=== PATIENT | male | born 1950 | race Hispanic/Latino ===

== ENCOUNTER 2018-11-05 11:00 | Emergency (ER) | payer MEDICARE, MEDICAID ==
--- NOTE | 2018-11-05 11:36 | CT ---
CT head noncontrast HISTORY: Double vision. FINDINGS: No comparison. There is no evidence of acute intracranial hemorrhage or infarct. Ventricles appear normal in size, shape and position. There is no mass effect or shift of midline structures. Minimal mucosal thickening within the ethmoid air cells. IMPRESSION: No acute intracranial abnormalities are demonstrated.
== END 2018-11-05 13:34 | disposition home or self-care (01) ==
LOC: ERS 11:00
DX: H53.9 Unspecified visual disturbance (principal); E87.1 Hypo-osmolality and hyponatremia; E11.9 Type 2 diabetes mellitus without complications
CPT/HCPCS: 36416; 70450; 93005

== ENCOUNTER 2022-06-06 08:34 | Outpatient (CLI) | payer MEDICARE, MEDICAID | END 2022-06-06 08:35 | LOC: TBSIIMAG 08:34 | PROVIDERS: ATTEND Urology | DX: C61 Malignant neoplasm of prostate (principal) | CPT/HCPCS: 72197; 82565 ==

== ENCOUNTER 2022-08-04 09:45 | Inpatient (IN) | payer MEDICARE, MEDICAID ==
[2022-08-04] MEDS ORDERED: Aspirin Chewable 81 MG TAB ONE (10:01)
[2022-08-04] MEDS ORDERED: Nitroglycerin 2% Ointment 1 INCH/1 GM Packet ONE (10:01)
[2022-08-04 10:50] LABS: #Eosinphils 0.1 thou/uL (0.0-0.7); #Neutrophils 8.2 thou/uL (1.40-6.50); %Basophils 0.3 % (0.0-1.0); %Eosinophils 0.8 % (0.0-10.0); %Lymphocytes 9.3 % (21.0-51.0); %Monocytes 9.7 % (0.0-10.0); ALT (SGPT) 25 U/L (8-55); AST (SGOT) 74 U/L (5-34); Albumin 4.2 g/dL (3.4-4.8); Alkaline Phosphatase 53 U/L (40-110); Anion Gap 16 mmol/L (10-20); BUN (Urea Nitrogen) 23 mg/dL (8.4-25.7); CK (CPK) 677 U/L (30-200); Calc. Creatinine Clearance 0 mL/min (70-130); Calcium 10.1 mg/dL (7.8-10.44); Carbon Dioxide 17 mmol/L (23-31); Chloride 105 mmol/L (98-107); Estimated GFR 73; Glucose 319 mg/dL (80-115); Hemoglobin 13.6 g/dL (14.0-18.0); Lipase 15 U/L (8-78); Mean Corpuscular HGB CONC 34.9 g/dL (32.0-36.0); Mean Corpuscular Hemoglobin 31.8 pg (27.0-31.0); Mean Platelet Volume 9.4 fL (7.4-10.4); Platelet Count 149 10x3/uL (130-400); Potassium 4.3 mmol/L (3.5-5.1); Protein, Total 7.2 g/dL (5.8-8.1); RBC Distribution Width 12.5 % (11.5-14.5); Red Blood Cell (RBC) Count 4.28 mill/uL (4.70-6.10); Sodium 134 mmol/L (136-145); White Blood Cell (WBC) Count 10.2 10x3/uL (4.8-10.8)
[2022-08-04 11:18] LABS: CKMB 22.3 ng/mL (0-6.6)
[2022-08-04] MEDS ORDERED: Nitroglycerin 0.4 MG TAB 1 EACH ONE (11:25)
[2022-08-04] MEDS ORDERED: Acetaminophen 325 MG TAB PO PRN (11:38)
[2022-08-04] MEDS ORDERED: Nitroglycerin 0.4 MG TAB (25 Tab Bottle) SL PRN (11:44)
[2022-08-04] MEDS ORDERED: Dextrose 5% in Water 1,000 ML IV PRN (12:00)
[2022-08-04] MEDS ORDERED: Insulin Regular 300 UNITS/3 ML VIAL SC PRN (12:00)
[2022-08-04] MEDS ORDERED: Dextrose 50% Abboject 50 ML SYRINGE SLOW IVP PRN (12:00)
[2022-08-04 13:33] LABS: Hemoglobin A1c 7.4 % (4.0-6.0)
[2022-08-04 14:03] LABS: Troponin I 22.217 ng/mL (< 0.028)
[2022-08-04 16:42] VITALS: BMI 34.5
[2022-08-04 18:03] LABS: Troponin I 26.642 ng/mL (< 0.028)
[2022-08-04 19:56] LABS: SARS-CoV-2 NAA Rapid Test Not Detected (NotDetected)
[2022-08-04] MEDS: Famotidine 20 MG TAB PO SCH (20:13)
[2022-08-04] MEDS: Atorvastatin Calcium 40 MG TAB PO SCH (20:13)
[2022-08-04] MEDS: Metoprolol Tartrate 25 MG TAB PO SCH (20:14)
[2022-08-05 04:30] LABS: #Eosinphils 0.1 thou/uL (0.0-0.7); #Lymphocytes 1.6 thou/uL (1.20-3.40); #Monocytes 0.8 thou/uL (0.11-0.59); #Neutrophils 6.1 thou/uL (1.40-6.50); %Basophils 0.1 % (0.0-1.0); %Eosinophils 0.8 % (0.0-10.0); %Lymphocytes 18.9 % (21.0-51.0); %Monocytes 9.5 % (0.0-10.0); %Neutrophils 70.7 % (42.0-75.0); Hemoglobin 11.7 g/dL (14.0-18.0); Mean Corpuscular Hemoglobin 31.2 pg (27.0-31.0); Mean Corpuscular Volume 91.8 fl (78.0-98.0); Mean Platelet Volume 9.5 fL (7.4-10.4); Platelet Count 136 10x3/uL (130-400); RBC Distribution Width 12.3 % (11.5-14.5); Red Blood Cell (RBC) Count 3.75 mill/uL (4.70-6.10); White Blood Cell (WBC) Count 8.6 10x3/uL (4.8-10.8)
[2022-08-05 04:45] LABS: Anion Gap 13 mmol/L (10-20); BUN (Urea Nitrogen) 25 mg/dL (8.4-25.7); Calc. Creatinine Clearance 88 mL/min (70-130); Calcium 9.1 mg/dL (7.8-10.44); Carbon Dioxide 19 mmol/L (23-31); Cardiac Risk 3.5 (Less than 4.5); Chloride 108 mmol/L (98-107); Cholesterol 118 mg/dl (< 200 Desired); Estimated GFR 80; Glucose 187 mg/dL (80-115); HDL Cholesterol 34 mg/dL (>60 Neg Risk); LDL Cholesterol, Calculated 65 mg/dL; Potassium 3.9 mmol/L (3.5-5.1); Sodium 136 mmol/L (136-145); Triglycerides 93 mg/dL (Less than 150)
[2022-08-05] MEDS: Aspirin 81 mg Enteric Coated Tablet PO SCH (05:37)
[2022-08-05] MEDS: Metoprolol Tartrate 25 MG TAB PO SCH ×2 (05:37→19:48)
[2022-08-05] MEDS: Famotidine 20 MG TAB PO SCH ×2 (05:37→19:48)
[2022-08-05] MEDS ORDERED: Communication Order-Pharmacy FS SCH (06:00)
[2022-08-05] MEDS ORDERED: Midazolam HCl 2 mg/2 ml Vial ONE (06:27)
[2022-08-05] MEDS ORDERED: fentaNYL 50 mcg/mL 1 mL Vial ONE (06:28)
[2022-08-05] MEDS ORDERED: Lidocaine 1% (PF) 30 ML VIAL ONE (06:28)
[2022-08-05] MEDS ORDERED: Verapamil 5 MG/2 ML VIAL ONE (07:11)
[2022-08-05] MEDS ORDERED: Nitroglycerin 50 MG/250 ML BOT 250 ML ONE (07:11)
[2022-08-05] MEDS ORDERED: Heparin 10,000 UNITS/ 10 ML VIAL ONE (07:11)
[2022-08-05] MEDS ORDERED: Sodium Chloride 0.9% 200 ML IV PRN (08:21)
[2022-08-05] MEDS ORDERED: Acetaminophen/Codeine 30-300mg Tablet PO PRN ×2 (08:21)
[2022-08-05] MEDS ORDERED: Nitroglycerin 0.4 MG TAB (25 Tab Bottle) SL PRN (08:21)
[2022-08-05] MEDS ORDERED: Iopamidol 370 76% 100 ML VIAL ONE (08:30)
[2022-08-05 09:31] LABS: Critical Call Chem Troponin I RESULT DECREASING; Troponin I 16.377 ng/mL (< 0.028)
[2022-08-05] MEDS: Empagliflozin 10 MG TAB PO SCH (10:05)
[2022-08-05] MEDS: Lisinopril 2.5 MG TAB PO SCH (10:05)
[2022-08-05] MEDS: Pioglitazone HCl 15 MG TAB PO SCH (10:05)
[2022-08-05] MEDS: Atorvastatin Calcium 40 MG TAB PO SCH (19:48)
[2022-08-06] MEDS: Aspirin 81 mg Enteric Coated Tablet PO SCH (09:31)
[2022-08-06] MEDS: Metoprolol Tartrate 25 MG TAB PO SCH ×2 (09:31→20:12)
[2022-08-06] MEDS: Pioglitazone HCl 15 MG TAB PO SCH (09:32)
[2022-08-06] MEDS: Lisinopril 2.5 MG TAB PO SCH (09:32)
[2022-08-06] MEDS: Famotidine 20 MG TAB PO SCH ×2 (09:32→20:12)
[2022-08-06] MEDS: Empagliflozin 10 MG TAB PO SCH (09:32)
[2022-08-06] MEDS: Atorvastatin Calcium 40 MG TAB PO SCH (20:12)
[2022-08-07] MEDS: Pioglitazone HCl 15 MG TAB PO SCH (08:53)
[2022-08-07] MEDS: Empagliflozin 10 MG TAB PO SCH (08:53)
[2022-08-07] MEDS: Lisinopril 2.5 MG TAB PO SCH (08:53)
[2022-08-07] MEDS: Famotidine 20 MG TAB PO SCH ×2 (08:54→21:17)
[2022-08-07] MEDS: Aspirin 81 mg Enteric Coated Tablet PO SCH (08:54)
[2022-08-07] MEDS: Metoprolol Tartrate 25 MG TAB PO SCH ×2 (08:54→21:17)
[2022-08-07] MEDS: Atorvastatin Calcium 40 MG TAB PO SCH (21:17)
[2022-08-08 05:27] LABS: Anion Gap 16 mmol/L (10-20); BUN (Urea Nitrogen) 22 mg/dL (8.4-25.7); Calc. Creatinine Clearance 93 mL/min (70-130); Calcium 9.6 mg/dL (7.8-10.44); Carbon Dioxide 20 mmol/L (23-31); Chloride 105 mmol/L (98-107); Estimated GFR 88; Glucose 113 mg/dL (80-115); Potassium 3.8 mmol/L (3.5-5.1); Sodium 137 mmol/L (136-145)
[2022-08-08] MEDS ORDERED: Polyethylene Glycol 3350 17 GM Packet PO PRN (05:47)
[2022-08-08] MEDS ORDERED: Docusate 100 MG CAP PO PRN (05:48)
[2022-08-08 07:44] VITALS: TEMP 97.5
[2022-08-08] MEDS ORDERED: Potassium Chloride 10 MEQ TAB PO SCH (08:00)
[2022-08-08] MEDS: Pioglitazone HCl 15 MG TAB PO SCH (08:05)
[2022-08-08] MEDS: Empagliflozin 10 MG TAB PO SCH (08:06)
[2022-08-08] MEDS: Aspirin 81 mg Enteric Coated Tablet PO SCH (08:06)
[2022-08-08] MEDS: Famotidine 20 MG TAB PO SCH (08:06)
[2022-08-08] MEDS: Metoprolol Tartrate 25 MG TAB PO SCH (08:06)
[2022-08-08] MEDS: Lisinopril 2.5 MG TAB PO SCH (08:06)
[2022-08-08] MEDS ORDERED: Furosemide 20 MG TAB PO SCH (09:00)
[2022-08-08 15:46] VITALS: BP 123/67
== END 2022-08-08 18:54 | disposition home or self-care (01) | DRG 282 ==
LOC: ERS 09:45 → ERHOLD 11:38 → 2NO 16:18
PROVIDERS: ADMIT Hospitalist; ATTEND Hospitalist
PROC: 4A023N7 Measurement of Cardiac Sampling and Pressure, Left Heart, Percutaneous Approach (ICD-10-PCS; principal; 2022-08-05)
PROC: B2151ZZ Fluoroscopy of Left Heart using Low Osmolar Contrast (ICD-10-PCS; 2022-08-05)
PROC: B2111ZZ Fluoroscopy of Multiple Coronary Arteries using Low Osmolar Contrast (ICD-10-PCS; 2022-08-05)
DX: I21.4 Non-ST elevation (NSTEMI) myocardial infarction (principal); Z20.822 Contact with and (suspected) exposure to COVID-19; I25.5 Ischemic cardiomyopathy; I25.10 Atherosclerotic heart disease of native coronary artery without angina pectoris; I10 Essential (primary) hypertension; E78.5 Hyperlipidemia, unspecified; E11.65 Type 2 diabetes mellitus with hyperglycemia; Z88.0 Allergy status to penicillin; Z79.899 Other long term (current) drug therapy; Z79.84 Long term (current) use of oral hypoglycemic drugs; Z90.49 Acquired absence of other specified parts of digestive tract; Z83.3 Family history of diabetes mellitus; Z87.891 Personal history of nicotine dependence
CPT/HCPCS: 36415; 36416; 71045; 80048; 80053; 80061; 82010; 82550; 82553; 83036; 83690; 83880; 84484; 85025; 85379; 87040; 93005; 93306; 93458; 93798; 94760; 96360; 96372; C1769; C1894; J1644; J1650; J2001; J2250; J3010; Q9967; U0002

== ENCOUNTER 2022-08-18 05:21 | Observation (INO) | payer MEDICARE, MEDICAID ==
[2022-08-18 06:04] LABS: #Eosinphils 0.2 thou/uL (0.0-0.7); #Lymphocytes 1.7 thou/uL (1.20-3.40); #Monocytes 0.5 thou/uL (0.11-0.59); #Neutrophils 6.8 thou/uL (1.40-6.50); %Basophils 0.5 % (0.0-1.0); %Eosinophils 2.6 % (0.0-10.0); %Lymphocytes 18.1 % (21.0-51.0); %Monocytes 5.4 % (0.0-10.0); %Neutrophils 73.4 % (42.0-75.0); Mean Corpuscular HGB CONC 32.5 g/dL (32.0-36.0); Mean Corpuscular Volume 92.1 fl (78.0-98.0); Mean Platelet Volume 8.5 fL (7.4-10.4); Platelet Count 305 10x3/uL (130-400); RBC Distribution Width 12.4 % (11.5-14.5); White Blood Cell (WBC) Count 9.3 10x3/uL (4.8-10.8)
[2022-08-18 06:25] LABS: ALT (SGPT) 77 U/L (8-55); AST (SGOT) 60 U/L (5-34); Albumin 4.5 g/dL (3.4-4.8); Alkaline Phosphatase 64 U/L (40-110); Anion Gap 17 mmol/L (10-20); BUN (Urea Nitrogen) 39 mg/dL (8.4-25.7); Bilirubin, Total 0.7 mg/dL (0.2-1.2); Calc. Creatinine Clearance 0 mL/min (70-130); Calcium 10.5 mg/dL (7.8-10.44); Carbon Dioxide 24 mmol/L (23-31); Chloride 102 mmol/L (98-107); Estimated GFR 60; Globulin 3.9 g/dL (2.4-3.5); Glucose 166 mg/dL (80-115); Potassium 4.8 mmol/L (3.5-5.1); Protein, Total 8.4 g/dL (5.8-8.1); Sodium 138 mmol/L (136-145)
[2022-08-18] MEDS ORDERED: Aspirin 325 MG TAB ONE (06:41)
[2022-08-18 06:53] LABS: CKMB 0.9 ng/mL (0-6.6)
[2022-08-18 09:52] VITALS: BMI 33.8
[2022-08-18] MEDS ORDERED: Acetaminophen 325 MG TAB PO PRN (10:19)
[2022-08-18] MEDS ORDERED: Ondansetron ODT 4 MG TAB PO PRN (10:19)
[2022-08-18] MEDS ORDERED: Ondansetron PF 4 MG/2 ML Vial IVP PRN (10:19)
[2022-08-18] MEDS ORDERED: Nitroglycerin 0.4 MG TAB (25 Tab Bottle) SL PRN (10:19)
[2022-08-18] MEDS ORDERED: Dextrose 50% Abboject 50 ML SYRINGE SLOW IVP PRN (10:28)
[2022-08-18] MEDS ORDERED: Dextrose 5% in Water 1,000 ML IV PRN (10:28)
[2022-08-18] MEDS ORDERED: HumaLOG 300 UNITS/3 ML VIAL SC PRN ×2 (10:28)
[2022-08-18 10:43] LABS: Critical Call Chem Troponin I DECREASE; Troponin I 0.341 ng/mL (< 0.028)
[2022-08-18 10:44] LABS: Magnesium 2.5 mg/dL (1.6-2.6)
[2022-08-18 11:51] LABS: Critical Call Chem Troponin I DECREASE
[2022-08-18 14:26] LABS: Critical Call Chem Troponin I DECREASE
[2022-08-18] MEDS: Heparin 5,000 UNITS/ML VIAL SC SCH ×2 (14:38→19:45)
[2022-08-18 17:51] LABS: Critical Call Chem Troponin I DECREASE
[2022-08-18 18:09] LABS: CKMB 0.9 ng/mL (0-6.6)
[2022-08-18] MEDS: Metoprolol Tartrate 25 MG TAB PO SCH (19:45)
[2022-08-18] MEDS ORDERED: Atorvastatin Calcium 40 MG TAB PO SCH (21:00)
[2022-08-19 04:47] LABS: #Eosinphils 0.1 thou/uL (0.0-0.7); #Lymphocytes 1.5 thou/uL (1.20-3.40); #Monocytes 0.7 thou/uL (0.11-0.59); #Neutrophils 6.3 thou/uL (1.40-6.50); %Basophils 0.1 % (0.0-1.0); %Eosinophils 1.5 % (0.0-10.0); %Lymphocytes 17.3 % (21.0-51.0); %Monocytes 8.3 % (0.0-10.0); %Neutrophils 72.7 % (42.0-75.0); Hemoglobin 12.9 g/dL (14.0-18.0); Mean Corpuscular HGB CONC 31.9 g/dL (32.0-36.0); Mean Corpuscular Hemoglobin 29.5 pg (27.0-31.0); Mean Corpuscular Volume 92.6 fl (78.0-98.0); Mean Platelet Volume 8.4 fL (7.4-10.4); Platelet Count 282 10x3/uL (130-400); RBC Distribution Width 12.4 % (11.5-14.5); Red Blood Cell (RBC) Count 4.38 mill/uL (4.70-6.10); White Blood Cell (WBC) Count 8.7 10x3/uL (4.8-10.8)
[2022-08-19 05:01] LABS: ALT (SGPT) 93 U/L (8-55); AST (SGOT) 67 U/L (5-34); Albumin 3.9 g/dL (3.4-4.8); Alkaline Phosphatase 59 U/L (40-110); Anion Gap 15 mmol/L (10-20); BUN (Urea Nitrogen) 43 mg/dL (8.4-25.7); Calc. Creatinine Clearance 67 mL/min (70-130); Calcium 9.6 mg/dL (7.8-10.44); Carbon Dioxide 21 mmol/L (23-31); Chloride 102 mmol/L (98-107); Estimated GFR 61; Globulin 3.2 g/dL (2.4-3.5); Glucose 167 mg/dL (80-115); Magnesium 2.4 mg/dL (1.6-2.6); Potassium 4.4 mmol/L (3.5-5.1); Protein, Total 7.1 g/dL (5.8-8.1); Sodium 134 mmol/L (136-145)
[2022-08-19 08:41] VITALS: BP 93/51; TEMP 98
[2022-08-19] MEDS: Metoprolol Tartrate 25 MG TAB PO SCH (08:41)
[2022-08-19] MEDS: Heparin 5,000 UNITS/ML VIAL SC SCH (08:42)
[2022-08-19] MEDS ORDERED: Furosemide 20 MG TAB PO SCH (09:00)
[2022-08-19] MEDS ORDERED: Lisinopril 2.5 MG TAB PO SCH (09:00)
[2022-08-19] MEDS ORDERED: Tamsulosin HCl 0.4 MG CAP PO SCH (09:00)
[2022-08-19] MEDS ORDERED: Aspirin 81 mg Enteric Coated Tablet PO SCH (09:00)
== END 2022-08-19 12:15 | disposition home or self-care (01) ==
LOC: ERS 05:21 → 2SW 07:43
PROVIDERS: ADMIT Internal Medicine; ATTEND Internal Medicine
DX: R07.89 Other chest pain (principal); R06.02 Shortness of breath; I10 Essential (primary) hypertension; E11.9 Type 2 diabetes mellitus without complications; I25.2 Old myocardial infarction; I25.10 Atherosclerotic heart disease of native coronary artery without angina pectoris; I25.5 Ischemic cardiomyopathy; E78.5 Hyperlipidemia, unspecified; R77.8 Other specified abnormalities of plasma proteins; Z85.46 Personal history of malignant neoplasm of prostate; Z79.82 Long term (current) use of aspirin; Z79.84 Long term (current) use of oral hypoglycemic drugs; Z79.899 Other long term (current) drug therapy; Z88.0 Allergy status to penicillin; Z95.810 Presence of automatic (implantable) cardiac defibrillator
CPT/HCPCS: 36415; 36416; 71045; 80053; 82553; 83735; 83880; 84484; 85025; 93005; 94760; 96372; G0378; J1644; J1815

== ENCOUNTER 2022-09-24 10:46 | Outpatient (CLI) | payer MEDICARE, MEDICAID | END 2022-09-24 10:47 | disposition home or self-care (01) | LOC: NM 10:46 | PROVIDERS: ATTEND Urology | DX: C61 Malignant neoplasm of prostate (principal) | CPT/HCPCS: 78306; A9503 ==

== ENCOUNTER 2023-03-11 13:30 | Inpatient (IN) | payer MEDICARE, MEDICAID ==
[2023-03-11 16:48] LABS: Anion Gap 15 mmol/L (10-20); BUN (Urea Nitrogen) 24 mg/dL (8.4-25.7); Calc. Creatinine Clearance 0 mL/min (70-130); Carbon Dioxide 23 mmol/L (23-31); Chloride 105 mmol/L (98-107); Estimated GFR 88; Glucose 203 mg/dL (80-115); Potassium 4.8 mmol/L (3.5-5.1); Sodium 138 mmol/L (136-145)
[2023-03-11 17:30] LABS: Hematocrit 45.7 % (38.8-50.0); Hemoglobin 15.2 g/dL (13.5-17.5); Mean Corpuscular HGB CONC 33.3 g/dL (32.0-36.0); Mean Corpuscular Hemoglobin 29.2 pg (27.0-33.0); Mean Corpuscular Volume 87.9 fl (81.2-95.1); Mean Platelet Volume 11.2 fl (7.4-10.4); Platelet Count 253 10x3/uL (150-450); RBC Distribution Width 13.2 % (11.5-14.5); White Blood Cell (WBC) Count 7.6 10x3/uL (3.5-10.5)
[2023-03-12] MEDS: Clindamycin/D5W 900 MG in Premix 1 BAG IVPB SCH ×3 (01:00→18:33)
[2023-03-12] MEDS ORDERED: Albumin 5% 500 ML ONE (06:41)
[2023-03-12] MEDS ORDERED: PHENYLEPHRINE-NS 100 MCG/ML 10 ML SYRINGE ONE (06:41)
[2023-03-12] MEDS ORDERED: Lidocaine 1% PF 5 ML VIAL ONE (06:42)
[2023-03-12] MEDS ORDERED: Sodium Chloride 0.9% 0 ML ONE (06:52)
[2023-03-12] MEDS ORDERED: CEFAZOLIN 2 GM VIAL ONE (06:52)
[2023-03-12] MEDS ORDERED: Clindamycin/D5W 900 mg/50 ml Premix Bag ONE (06:53)
[2023-03-12] MEDS ORDERED: Heparin 10,000 UNITS/1 ML VIAL 30,000 UNITS in Sodium Chloride 0.9% 1,000 ML FS SCH (07:15)
[2023-03-12] MEDS ORDERED: Potassium Chloride 60 MEQ/30 ML VIAL ONE (07:35)
[2023-03-12] MEDS ORDERED: Calcium Chloride 1 GM/10 ML Abboject SYRINGE ONE (07:35)
[2023-03-12] MEDS ORDERED: Heparin 5,000 UNITS/ML VIAL ONE (07:35)
[2023-03-12] MEDS ORDERED: Papaverine 60 MG/2 ML VIAL ONE (07:35)
[2023-03-12] MEDS ORDERED: Vancomycin 1 GM VIAL ONE (07:35)
[2023-03-12] MEDS ORDERED: Aminocaproic Acid 5 GM/20 ML VIAL ONE (07:35)
[2023-03-12] MEDS ORDERED: Cardioplegic Soln 1,000 ML BAG ONE (07:35)
[2023-03-12] MEDS ORDERED: PROPOFOL 200 MG/20 ML VIAL ONE (07:35)
[2023-03-12] MEDS ORDERED: Albumin 25% 25 GM/100 ML BOT ONE (07:35)
[2023-03-12] MEDS ORDERED: Ondansetron PF 4 MG/2 ML Vial ONE (07:35)
[2023-03-12] MEDS ORDERED: Protamine Sulfate 250 MG/25 ML VIAL ONE (07:35)
[2023-03-12] MEDS ORDERED: Vecuronium 10 MG VIAL ONE (07:35)
[2023-03-12] MEDS ORDERED: Magnesium 5 GM/10 ML VIAL ONE (07:35)
[2023-03-12] MEDS ORDERED: Mannitol 12.5 GM/50 ML ONE (07:35)
[2023-03-12] MEDS ORDERED: Heparin 30,000 units/30 ml VIAL ONE (07:35)
[2023-03-12] MEDS ORDERED: Sodium Bicarb 50 MEQ/50 ML VIAL ONE (07:35)
[2023-03-12] MEDS ORDERED: Rocuronium Bromide 10 MG/ML (10ML VIAL) ONE (07:35)
[2023-03-12] MEDS ORDERED: DOPamine 400 MG/10 ML VIAL ONE (07:35)
[2023-03-12] MEDS ORDERED: Lidocaine 2% PF 100 mg/5 ml Syringe ONE (07:35)
[2023-03-12] MEDS ORDERED: Insulin Regular 300 UNITS/3 ML VIAL ONE (08:26)
[2023-03-12] MEDS ORDERED: Morphine 2 MG/ML VIAL SLOW IVP PRN (10:44)
[2023-03-12] MEDS ORDERED: Acetaminophen 325 MG TAB PO PRN (10:44)
[2023-03-12] MEDS ORDERED: HYDROcodone/Acetaminophen 5/325 mg Tablet PO PRN ×2 (10:44)
[2023-03-12] MEDS ORDERED: Hetastarch 6% 500 ML 500 ML IVPB PRN (10:44)
[2023-03-12] MEDS ORDERED: niCARdipine 25 MG in Sodium Chloride 0.9% 250 ML 250 ML IVPB PRN (10:44)
[2023-03-12] MEDS ORDERED: Ipratropium/Albuterol 3 ML NEB NEB PRN (10:44)
[2023-03-12] MEDS ORDERED: NOREPINEPHRINE 8 MG/250 ML-D5W 250 ML IVPB PRN (10:44)
[2023-03-12] MEDS ORDERED: hydrALAZINE 20 MG/ML VIAL SLOW IVP PRN (10:44)
[2023-03-12] MEDS ORDERED: Mag-Al 1200 mg/1200 mg/30 ML UDCUP PO PRN (10:44)
[2023-03-12] MEDS ORDERED: fentaNYL 50 mcg/mL 1 mL Vial SLOW IVP PRN ×2 (10:44)
[2023-03-12] MEDS ORDERED: Bisacodyl 10 MG SUPP PR PRN (10:44)
[2023-03-12] MEDS ORDERED: Guaifenesin DM 100-10/5 ML UDCUP PO PRN (10:44)
[2023-03-12] MEDS ORDERED: Nitroglycerin 50 MG/250 ML BOT 250 ML IVPB PRN (10:44)
[2023-03-12] MEDS ORDERED: Promethazine HCl 25 MG/ML VIAL IM PRN (10:44)
[2023-03-12] MEDS ORDERED: Post-Op Insulin Drip Protocol IVPB ONE (10:44)
[2023-03-12] MEDS ORDERED: Glucagon 1 MG/ML KIT SC PRN (11:00)
[2023-03-12] MEDS ORDERED: Dextrose 5% in Water 1,000 ML IV PRN (11:00)
[2023-03-12] MEDS ORDERED: HUMULIN R 100 UNITS in Sodium Chloride 0.9% 100 ML IVPB SCH (11:00)
[2023-03-12] MEDS ORDERED: Dextrose 50% Abboject 50 ML SYRINGE SLOW IVP PRN (11:00)
[2023-03-12 11:14] LABS: #Eosinphils 0.2 thou/uL (0.0-0.7); #Monocytes 0.3 thou/uL (0.11-0.59); %Basophils 0.4 % (0.0-1.0); %Monocytes 4.1 % (0.0-10.0); %Neutrophils 70.5 % (42.0-75.0); Hematocrit 38.1 % (42.0-52.0); Hemoglobin 12.6 g/dL (14.0-18.0); Mean Corpuscular HGB CONC 33.1 g/dL (32.0-36.0); Mean Corpuscular Hemoglobin 29.7 pg (27.0-31.0); Mean Corpuscular Volume 89.9 fl (78.0-98.0); Mean Platelet Volume 10.9 fL (7.4-10.4); Platelet Count 146 10x3/uL (130-400); RBC Distribution Width 13.2 % (11.5-14.5); Red Blood Cell (RBC) Count 4.24 mill/uL (4.70-6.10); White Blood Cell (WBC) Count 7.1 10x3/uL (4.8-10.8)
[2023-03-12 11:25] LABS: INR-International Normal Ratio 1.3; PTT 41.5 sec (22.9-36.1); Prothrombin Time 16.8 sec (12.0-14.7)
[2023-03-12] MEDS: Lactated Ringer's 1,000 ML IV SCH (11:26)
[2023-03-12 11:30] LABS: Anion Gap 12 mmol/L (10-20); BUN (Urea Nitrogen) 18 mg/dL (8.4-25.7); Calc. Creatinine Clearance 100 mL/min (70-130); Calcium 8.5 mg/dL (7.8-10.44); Carbon Dioxide 21 mmol/L (23-31); Chloride 112 mmol/L (98-107); Estimated GFR 96; Glucose 137 mg/dL (80-115); Potassium 3.8 mmol/L (3.5-5.1); Sodium 141 mmol/L (136-145)
[2023-03-12] MEDS: Ketorolac Tromethamine 30 MG/ML VIAL IVP SCH ×3 (11:35→23:46)
[2023-03-12 11:36] LABS: Actual Bicarbonate (HCO3a) 20.2 mEq/L (22-28); Base Excess (BEa) -3.7 mEq/L (-2.0 to +3.0); CO2 Tension 32.9 mmHg (35.0-45.0); Calcium, Ionized (arterial) 1.18 mmol/L (1.12-1.30); Carboxyhemoglobin (COHb) 0.4 gm% (0.0-3.0); Hematocrit-ABG 38 % (42.0-52.0); Potassium - ABG Lab 3.67 mmol/L (3.70-5.30); pH, Arterial 7.405 (7.35-7.45)
[2023-03-12] MEDS: Insulin Regular 300 UNITS/3 ML VIAL SC PRN ×3 (11:36→20:31)
[2023-03-12] MEDS: Ondansetron PF 4 MG/2 ML Vial IVP PRN ×2 (11:36→19:59)
[2023-03-12] MEDS: Potassium Chloride 20 MEQ/100 ML PREMIX BAG IVPB PRN (11:49)
[2023-03-12 12:34] VITALS: BMI 34.0
[2023-03-12 14:44] LABS: ALV-art Gradient 166.375 mmHg (0-20); Puncture Site ALINE
[2023-03-12 16:45] LABS: Actual Bicarbonate (HCO3a) 19.4 mEq/L (22-28); Base Excess (BEa) -5.3 mEq/L (-2.0 to +3.0); CO2 Tension 34.9 mmHg (35.0-45.0); Calcium, Ionized (arterial) 1.18 mmol/L (1.12-1.30); Carboxyhemoglobin (COHb) 0.4 gm% (0.0-3.0); Hematocrit-ABG 36 % (42.0-52.0); Hemoglobin (Hb) 12.3 g/dL (14.0-18.0); Potassium - ABG Lab 4.08 mmol/L (3.70-5.30); pH, Arterial 7.362 (7.35-7.45)
[2023-03-12 17:39] LABS: ALV-art Gradient 67.575 mmHg (0-20); Puncture Site ALINE
[2023-03-12 18:06] LABS: Potassium 4.3 mmol/L (3.5-5.1)
[2023-03-12] MEDS: DOPamine 400 MG/D5W 250 ML 250 ML IVPB PRN (18:46)
[2023-03-12] MEDS: Famotidine/PF 20 mg/2ml Vial SLOW IVP SCH (20:21)
[2023-03-12] MEDS: Atorvastatin Calcium 20 MG TAB PO SCH (20:24)
[2023-03-13] MEDS: Insulin Regular 300 UNITS/3 ML VIAL SC PRN ×7 (01:32→23:15)
[2023-03-13] MEDS: Lactated Ringer's 1,000 ML IV SCH (03:17)
[2023-03-13 04:26] LABS: #Monocytes 0.6 thou/uL (0.11-0.59); #Neutrophils 7.3 thou/uL (1.40-6.50); %Basophils 0.2 % (0.0-1.0); %Eosinophils 0.2 % (0.0-10.0); %Lymphocytes 8.4 % (21.0-51.0); %Monocytes 6.9 % (0.0-10.0); Hematocrit 32.8 % (42.0-52.0); Hemoglobin 10.8 g/dL (14.0-18.0); Mean Corpuscular HGB CONC 32.9 g/dL (32.0-36.0); Mean Corpuscular Hemoglobin 29.9 pg (27.0-31.0); Mean Corpuscular Volume 90.9 fl (78.0-98.0); Platelet Count 154 10x3/uL (130-400); RBC Distribution Width 13.4 % (11.5-14.5); Red Blood Cell (RBC) Count 3.61 mill/uL (4.70-6.10); White Blood Cell (WBC) Count 8.7 10x3/uL (4.8-10.8)
[2023-03-13 04:51] LABS: Anion Gap 13 mmol/L (10-20); BUN (Urea Nitrogen) 20 mg/dL (8.4-25.7); Calc. Creatinine Clearance 98 mL/min (70-130); Calcium 8.5 mg/dL (7.8-10.44); Carbon Dioxide 21 mmol/L (23-31); Chloride 111 mmol/L (98-107); Estimated GFR 93; Glucose 124 mg/dL (80-115); Potassium 4.1 mmol/L (3.5-5.1); Sodium 141 mmol/L (136-145)
[2023-03-13] MEDS: Ketorolac Tromethamine 30 MG/ML VIAL IVP SCH ×4 (05:59→23:06)
[2023-03-13] MEDS: Clindamycin/D5W 900 MG in Premix 1 BAG IVPB SCH (06:08)
[2023-03-13] MEDS: Famotidine/PF 20 mg/2ml Vial SLOW IVP SCH ×2 (08:09→20:10)
[2023-03-13] MEDS: Aspirin 325 MG TAB PO SCH (08:09)
[2023-03-13] MEDS: Polyethylene Glycol 3350 17 GM Packet PO SCH (08:09)
[2023-03-13] MEDS: Tamsulosin HCl 0.4 MG CAP PO SCH (08:09)
[2023-03-13] MEDS: Finasteride 5 MG TAB PO SCH (08:09)
[2023-03-13] MEDS: Empagliflozin 10 MG TAB PO SCH (08:22)
[2023-03-13] MEDS ORDERED: Insulin Glargine 30 UNITS/0.3 ML VIAL SC PRN (10:57)
[2023-03-13] MEDS: DOPamine 400 MG/D5W 250 ML 250 ML IVPB PRN (14:07)
[2023-03-13] MEDS: Atorvastatin Calcium 20 MG TAB PO SCH (20:10)
[2023-03-14] MEDS: Insulin Regular 300 UNITS/3 ML VIAL SC PRN ×5 (03:43→20:31)
[2023-03-14 04:40] LABS: #Eosinphils 0.1 thou/uL (0.0-0.7); #Monocytes 0.6 thou/uL (0.11-0.59); #Neutrophils 6.1 thou/uL (1.40-6.50); %Basophils 0.1 % (0.0-1.0); %Eosinophils 1.1 % (0.0-10.0); %Lymphocytes 14.4 % (21.0-51.0); %Monocytes 7.1 % (0.0-10.0); Hematocrit 32.5 % (42.0-52.0); Hemoglobin 10.6 g/dL (14.0-18.0); Mean Corpuscular HGB CONC 32.6 g/dL (32.0-36.0); Mean Corpuscular Hemoglobin 30.1 pg (27.0-31.0); Mean Corpuscular Volume 92.3 fl (78.0-98.0); Mean Platelet Volume 10.9 fL (7.4-10.4); Platelet Count 147 10x3/uL (130-400); RBC Distribution Width 13.6 % (11.5-14.5); Red Blood Cell (RBC) Count 3.52 mill/uL (4.70-6.10); White Blood Cell (WBC) Count 7.9 10x3/uL (4.8-10.8)
[2023-03-14] MEDS: Ondansetron PF 4 MG/2 ML Vial IVP PRN (05:04)
[2023-03-14] MEDS: Ketorolac Tromethamine 30 MG/ML VIAL IVP SCH (05:05)
[2023-03-14 05:07] LABS: Anion Gap 10 mmol/L (10-20); BUN (Urea Nitrogen) 23 mg/dL (8.4-25.7); Calc. Creatinine Clearance 93 mL/min (70-130); Calcium 8.3 mg/dL (7.8-10.44); Carbon Dioxide 23 mmol/L (23-31); Chloride 111 mmol/L (98-107); Estimated GFR 93; Glucose 109 mg/dL (80-115); Potassium 3.6 mmol/L (3.5-5.1); Sodium 140 mmol/L (136-145)
[2023-03-14] MEDS: Potassium Chloride 20 MEQ/100 ML PREMIX BAG IVPB PRN (07:13)
[2023-03-14] MEDS: Tamsulosin HCl 0.4 MG CAP PO SCH (08:19)
[2023-03-14] MEDS: Empagliflozin 10 MG TAB PO SCH (08:19)
[2023-03-14] MEDS: Famotidine/PF 20 mg/2ml Vial SLOW IVP SCH (08:19)
[2023-03-14] MEDS: Finasteride 5 MG TAB PO SCH (08:19)
[2023-03-14] MEDS: Aspirin 325 MG TAB PO SCH (08:19)
[2023-03-14] MEDS: Polyethylene Glycol 3350 17 GM Packet PO SCH (08:20)
[2023-03-14] MEDS: Atorvastatin Calcium 20 MG TAB PO SCH (20:32)
[2023-03-14] MEDS: Bisacodyl 5 MG TAB PO PRN (20:32)
[2023-03-14] MEDS: Famotidine 20 MG TAB PO SCH (20:33)
[2023-03-15] MEDS: Insulin Regular 300 UNITS/3 ML VIAL SC PRN ×4 (01:26→22:09)
[2023-03-15 04:56] LABS: #Eosinphils 0.1 thou/uL (0.0-0.7); #Monocytes 0.5 thou/uL (0.11-0.59); #Neutrophils 6.4 thou/uL (1.40-6.50); %Basophils 0.1 % (0.0-1.0); %Eosinophils 1.7 % (0.0-10.0); %Lymphocytes 12.2 % (21.0-51.0); %Monocytes 6.4 % (0.0-10.0); %Neutrophils 79.1 % (42.0-75.0); Hematocrit 32.9 % (42.0-52.0); Hemoglobin 10.5 g/dL (14.0-18.0); Mean Corpuscular HGB CONC 31.9 g/dL (32.0-36.0); Mean Corpuscular Hemoglobin 29.1 pg (27.0-31.0); Mean Corpuscular Volume 91.1 fl (78.0-98.0); Mean Platelet Volume 11.6 fL (7.4-10.4); Platelet Count 151 10x3/uL (130-400); RBC Distribution Width 13.8 % (11.5-14.5); Red Blood Cell (RBC) Count 3.61 mill/uL (4.70-6.10)
[2023-03-15 05:28] LABS: Anion Gap 8 mmol/L (10-20); BUN (Urea Nitrogen) 27 mg/dL (8.4-25.7); Calc. Creatinine Clearance 95 mL/min (70-130); Calcium 8.6 mg/dL (7.8-10.44); Carbon Dioxide 25 mmol/L (23-31); Chloride 108 mmol/L (98-107); Estimated GFR 93; Glucose 137 mg/dL (80-115); Sodium 137 mmol/L (136-145)
[2023-03-15] MEDS: Potassium Chloride 20 MEQ/100 ML PREMIX BAG IVPB PRN (06:34)
[2023-03-15] MEDS: Polyethylene Glycol 3350 17 GM Packet PO SCH (08:35)
[2023-03-15] MEDS: Aspirin 325 MG TAB PO SCH (08:35)
[2023-03-15] MEDS: Tamsulosin HCl 0.4 MG CAP PO SCH (08:35)
[2023-03-15] MEDS: Famotidine 20 MG TAB PO SCH ×2 (08:35→22:04)
[2023-03-15] MEDS: Empagliflozin 10 MG TAB PO SCH (08:35)
[2023-03-15] MEDS: Finasteride 5 MG TAB PO SCH (08:35)
[2023-03-15] MEDS ORDERED: FLU VACC QS2023(65UP)/MF59C/PF 60 MCG/0.5 ML SYRINGE IM ONE (09:00)
[2023-03-15] MEDS: Atorvastatin Calcium 20 MG TAB PO SCH (22:04)
[2023-03-16] MEDS: Insulin Regular 300 UNITS/3 ML VIAL SC PRN ×3 (05:10→18:13)
[2023-03-16 05:25] LABS: #Eosinphils 0.2 thou/uL (0.0-0.7); #Monocytes 0.5 thou/uL (0.11-0.59); #Neutrophils 5.7 thou/uL (1.40-6.50); %Basophils 0.1 % (0.0-1.0); %Eosinophils 2.1 % (0.0-10.0); %Neutrophils 78.4 % (42.0-75.0); Hematocrit 32.3 % (42.0-52.0); Hemoglobin 10.5 g/dL (14.0-18.0); Mean Corpuscular HGB CONC 32.5 g/dL (32.0-36.0); Mean Corpuscular Hemoglobin 29.5 pg (27.0-31.0); Mean Corpuscular Volume 90.7 fl (78.0-98.0); Mean Platelet Volume 11.5 fL (7.4-10.4); Platelet Count 172 10x3/uL (130-400); RBC Distribution Width 13.8 % (11.5-14.5); Red Blood Cell (RBC) Count 3.56 mill/uL (4.70-6.10); White Blood Cell (WBC) Count 7.3 10x3/uL (4.8-10.8)
[2023-03-16 05:53] LABS: Anion Gap 12 mmol/L (10-20); BUN (Urea Nitrogen) 25 mg/dL (8.4-25.7); Calc. Creatinine Clearance 104 mL/min (70-130); Calcium 8.7 mg/dL (7.8-10.44); Carbon Dioxide 22 mmol/L (23-31); Chloride 107 mmol/L (98-107); Estimated GFR 96; Glucose 143 mg/dL (80-115); Potassium 4.1 mmol/L (3.5-5.1); Sodium 137 mmol/L (136-145)
[2023-03-16] MEDS: Tamsulosin HCl 0.4 MG CAP PO SCH (09:54)
[2023-03-16] MEDS: Famotidine 20 MG TAB PO SCH ×2 (09:54→20:08)
[2023-03-16] MEDS: Aspirin 325 MG TAB PO SCH (09:54)
[2023-03-16] MEDS: Finasteride 5 MG TAB PO SCH (09:54)
[2023-03-16] MEDS: Polyethylene Glycol 3350 17 GM Packet PO SCH (09:55)
[2023-03-16] MEDS: Empagliflozin 10 MG TAB PO SCH (09:55)
[2023-03-16] MEDS: Atorvastatin Calcium 20 MG TAB PO SCH (20:08)
[2023-03-16] MEDS: Bisacodyl 5 MG TAB PO PRN (20:09)
[2023-03-17 04:56] LABS: #Eosinphils 0.2 thou/uL (0.0-0.7); #Monocytes 0.6 thou/uL (0.11-0.59); %Basophils 0.2 % (0.0-1.0); %Eosinophils 3.4 % (0.0-10.0); %Lymphocytes 18.2 % (21.0-51.0); %Monocytes 9.8 % (0.0-10.0); %Neutrophils 67.9 % (42.0-75.0); Hematocrit 31.1 % (42.0-52.0); Hemoglobin 10.3 g/dL (14.0-18.0); Mean Corpuscular HGB CONC 33.1 g/dL (32.0-36.0); Mean Corpuscular Hemoglobin 29.7 pg (27.0-31.0); Mean Corpuscular Volume 89.6 fl (78.0-98.0); Mean Platelet Volume 11.3 fL (7.4-10.4); Platelet Count 191 10x3/uL (130-400); RBC Distribution Width 13.8 % (11.5-14.5); Red Blood Cell (RBC) Count 3.47 mill/uL (4.70-6.10); White Blood Cell (WBC) Count 5.9 10x3/uL (4.8-10.8)
[2023-03-17 05:23] LABS: Anion Gap 11 mmol/L (10-20); BUN (Urea Nitrogen) 25 mg/dL (8.4-25.7); Calc. Creatinine Clearance 96 mL/min (70-130); Carbon Dioxide 24 mmol/L (23-31); Chloride 106 mmol/L (98-107); Estimated GFR 93; Glucose 192 mg/dL (80-115); Potassium 4.1 mmol/L (3.5-5.1); Sodium 137 mmol/L (136-145)
[2023-03-17] MEDS: Insulin Regular 300 UNITS/3 ML VIAL SC PRN (05:38)
[2023-03-17] MEDS ORDERED: Furosemide 40 MG TAB PO SCH (07:30)
[2023-03-17 07:54] VITALS: TEMP 98.2
[2023-03-17] MEDS ORDERED: Potassium Chloride 10 MEQ TAB PO SCH (08:00)
[2023-03-17] MEDS: Finasteride 5 MG TAB PO SCH (08:51)
[2023-03-17] MEDS: Empagliflozin 10 MG TAB PO SCH (08:51)
[2023-03-17] MEDS: Polyethylene Glycol 3350 17 GM Packet PO SCH (08:51)
[2023-03-17] MEDS: Famotidine 20 MG TAB PO SCH (08:51)
[2023-03-17] MEDS: Aspirin 325 MG TAB PO SCH (08:52)
[2023-03-17] MEDS: Tamsulosin HCl 0.4 MG CAP PO SCH (08:52)
[2023-03-17] MEDS ORDERED: Metoprolol Tartrate 25 MG TAB PO SCH (09:00)
[2023-03-17 10:33] LABS: Actual Bicarbonate (HCO3a) 21.3 mEq/L (22-28); Analyzer IN Cardio OR; CO2 Tension 40.2 mmHg (35.0-45.0); Calcium, Ionized (arterial) 1.14 mmol/L (1.12-1.30); Carboxyhemoglobin (COHb) 0.8 gm% (0.0-3.0); Hematocrit-ABG 41 % (42.0-52.0); Hemoglobin (Hb) 13.9 g/dL (14.0-18.0); O2 Tension (PaO2), arterial 372.5 mmHg (> 70.0); Potassium - ABG Lab 3.67 mmol/L (3.70-5.30); pH, Arterial 7.343 (7.35-7.45)
[2023-03-17 10:34] LABS: Actual Bicarbonate (HCO3v) 23.9 mEq/L (22-28); Analyzer IN Cardio OR; Base Excess -1.6 mEq/L (-2.0 to +3.0); Calcium, Ionized (venous) 1.08 mmol/L (1.16-1.32); Chloride (VBG) 106 mmol/L (98-106); Hematocrit-VBG 30 % (42.0-52.0); Hemoglobin (Hb) 10.1 g/dL (12.6-17.4); Potassium (VBG) 4.25 mmol/L (3.70-5.30); Sodium 138 mmol/L (133-146); pH (venous) 7.358 (7.32-7.43)
[2023-03-17 10:35] LABS: Puncture Site Arterial Line
[2023-03-17 13:36] VITALS: BP 121/67
== END 2023-03-17 11:50 | disposition home or self-care (01) | DRG 236 ==
LOC: SURG A 03-12 05:51 → CCU 03-12 09:45 → 2NO 03-16 15:57
PROVIDERS: ADMIT Thoracic Surgery (Cardiothoracic Vascular Surgery); ATTEND Thoracic Surgery (Cardiothoracic Vascular Surgery)
PROC: 02100Z9 Bypass Coronary Artery, One Artery from Left Internal Mammary, Open Approach (ICD-10-PCS; principal; 2023-03-12)
PROC: 021009W Bypass Coronary Artery, One Artery from Aorta with Autologous Venous Tissue, Open Approach (ICD-10-PCS; 2023-03-12)
PROC: 06BQ3ZZ Excision of Left Saphenous Vein, Percutaneous Approach (ICD-10-PCS; 2023-03-12)
PROC: 5A1221Z Performance of Cardiac Output, Continuous (ICD-10-PCS; 2023-03-12)
PROC: 02L70CK Occlusion of Left Atrial Appendage with Extraluminal Device, Open Approach (ICD-10-PCS; 2023-03-12)
PROC: 4A133R1 Monitoring of Arterial Saturation, Peripheral, Percutaneous Approach (ICD-10-PCS; 2023-03-12)
PROC: 30233J1 Transfusion of Nonautologous Serum Albumin into Peripheral Vein, Percutaneous Approach (ICD-10-PCS; 2023-03-12)
DX: I25.10 Atherosclerotic heart disease of native coronary artery without angina pectoris (principal); E11.9 Type 2 diabetes mellitus without complications; E78.2 Mixed hyperlipidemia; I42.9 Cardiomyopathy, unspecified; I10 Essential (primary) hypertension; I25.2 Old myocardial infarction; Z88.0 Allergy status to penicillin; Z88.8 Allergy status to other drugs, medicaments and biological substances
CPT/HCPCS: 36415; 36416; 71045; 80048; 82805; 82947; 85025; 85027; 85610; 85730; 86850; 86900; 86901; 93005; 93010; 93798; 94002; 94150; A4311; C1751; J1265; J1642; J1644; J1815; J1885; J2001; J2150; J2250; J2272; J2405; J2440; J2550; J2704; J2720; J3010; J3370; J3475; J3480; J3490; J7120; P9045; P9047; S0017; S0028

== ENCOUNTER 2023-03-11 13:38 | Outpatient (CLI) | payer MEDICARE, MEDICAID | END 2023-03-11 13:39 | disposition home or self-care (01) | LOC: LABBT 13:38 | PROVIDERS: ATTEND Thoracic Surgery (Cardiothoracic Vascular Surgery) | DX: Z53.9 Procedure and treatment not carried out, unspecified reason (principal) | CPT/HCPCS: 80048; 85027 ==